=== PATIENT | male | born 1985 | race Caucasian/White ===

== ENCOUNTER 2018-08-05 15:20 | Emergency (ER) | payer MEDICAID ==
[~2018-08-05] VITALS: Ht 198.1 cm; Wt 90.7 kg
[2018-08-05] MEDS ORDERED: ACETAMINOPHEN ES 500 MG TABLET ONE (17:38)
[2018-08-05] MEDS: IV NS 0.9% 1,000 ML BAG IV ONE (17:48)
[2018-08-05] MEDS: ACETAMINOPHEN ES 500 MG TABLET PO ONE (17:49)
--- NOTE | 2018-08-05 17:50 | NUR ---
R SIDE JAW PAIN AND SWELLING X TODAY UPON WAKING UP. PT AAOX4, VSS. DENIES SOB, N/V OR ANY ACUTE DISTRESS NOTED. PT SEEN & EVAL'D BY KETAN KENYON. MEDICATED FOR PAIN & WILL CONT TO MONITOR.
[2018-08-05 17:58] LABS: BASOPHILS # (AUTO) 0.1 /CMM (0.0-0.2); BASOPHILS % (AUTO) 0.5 % (0.0-2.0); EOSINOPHILS % (AUTO) 0.9 % (0.0-6.0); HEMATOCRIT 44 % (39-51); HEMOGLOBIN 14.9 g/dL (13.5-17.5); LYMPHOCYTES # (AUTO) 1.5 /CMM (0.8-4.8); LYMPHOCYTES % (AUTO) 10.7 % (20.0-44.0); MEAN CORPUSCULAR HGB CONC 34 g/dl (31.0-36.0); MEAN CORPUSCULAR VOLUME 92 fL (80-96); MONOCYTES # (AUTO) 0.9 /CMM (0.1-1.30); MONOCYTES % (AUTO) 6.6 % (2.0-12.0); NEUTROPHILS # (AUTO) 11.1 /CMM (1.8-8.9); NEUTROPHILS % (AUTO) 81.3 % (43.0-81.0); PLATELET COUNT (AUTO) 275 /CMM (150-450); RED BLOOD CELL COUNT(AUTO) 4.84 MIL/uL (4.5-6.0); WHITE BLOOD COUNT (AUTO) 13.6 K/uL (4.3-11.0)
[2018-08-05] MEDS: CLINDAMYCIN 600 MG in IV NS 0.9% 50 ML IV SCH (18:04)
[2018-08-05 18:07] LABS: CALCIUM, SERUM 8.8 mg/dL (8.5-10.1); POTASSIUM 3.4 mmol/L (3.5-5.1)
[2018-08-05] MEDS ORDERED: CT SWABBABLE VALVE TRANS SET 1 EA INFUS.SET MC ONE (18:15)
[2018-08-05] MEDS ORDERED: IV NS 0.9% 250 ML IV ONE (18:15)
[2018-08-05] MEDS ORDERED: IOHEXOL-300 100 ML VIAL IV ONE (18:15)
[2018-08-05 19:48] VITALS: BP 139/78
--- NOTE | 2018-08-05 19:49 | NUR ---
Patient discharged to home in stable condition. Written and verbal after care instructions given. Patient verbalizes understanding of instruction. IV removed. Catheter intact and site benign. Pressure and 4x4 applied to site. No bleeding noted. Pt ambulatory with a steady gait
== END 2018-08-05 19:51 | disposition home or self-care (01) ==
LOC: ER 15:43
DX: K13.0 Diseases of lips (principal)
CPT/HCPCS: 36415; 70487; 80048; 85025; 96365; 99284; A4216; A4606; J3490; J7030; J7050; Q9967

== ENCOUNTER 2018-08-30 11:08 | Emergency (ER) | payer MEDICAID ==
[~2018-08-30] VITALS: Ht 198.1 cm; Wt 80.3 kg
[2018-08-30 11:16] VITALS: BP 137/97
[2018-08-30] MEDS ORDERED: IBUPROFEN 600 MG TABLET PO ONE ×2 (11:30→11:36)
== END 2018-08-30 11:45 | disposition home or self-care (01) ==
LOC: ER 11:19
DX: L55.0 Sunburn of first degree (principal); M79.672 Pain in left foot; F12.10 Cannabis abuse, uncomplicated; F17.200 Nicotine dependence, unspecified, uncomplicated; Z59.0 Homelessness; X08.8XXA Exposure to other specified smoke, fire and flames, initial encounter; Y93.89 Activity, other specified; Y92.89 Other specified places as the place of occurrence of the external cause; Y99.8 Other external cause status
CPT/HCPCS: 16000; 99284; A4606

== ENCOUNTER 2018-11-24 14:50 | Emergency (ER) | payer MEDICAID ==
[~2018-11-24] VITALS: Ht 198.1 cm; Wt 87.5 kg
[2018-11-24 15:03] VITALS: BP 107/71
[2018-11-24 16:05] LABS: BASOPHILS % (AUTO) 0.5 % (0.0-2.0); EOSINOPHILS % (AUTO) 2.2 % (0.0-6.0); HEMATOCRIT 34 % (39-51); HEMOGLOBIN 11.7 g/dL (13.5-17.5); LYMPHOCYTES % (AUTO) 28.5 % (20.0-44.0); MEAN CORPUSCULAR HGB CONC 34 g/dl (31.0-36.0); MEAN CORPUSCULAR VOLUME 90 fL (80-96); MONOCYTES # (AUTO) 0.9 /CMM (0.1-1.30); NEUTROPHILS # (AUTO) 3.8 /CMM (1.8-8.9); NEUTROPHILS % (AUTO) 55.8 % (43.0-81.0); PLATELET COUNT (AUTO) 236 /CMM (150-450); RED BLOOD CELL COUNT(AUTO) 3.83 MIL/uL (4.5-6.0); WHITE BLOOD COUNT (AUTO) 6.9 K/uL (4.3-11.0)
[2018-11-24 16:14] LABS: CALCIUM, SERUM 8.1 mg/dL (8.5-10.1); CREATININE 1.1 mg/dL (0.6-1.3); POTASSIUM 4.2 mmol/L (3.5-5.1)
--- NOTE | 2018-11-24 16:38 | NUR ---
Patient discharged to home in stable condition. Written and verbal after care instructions given. Patient verbalizes understanding of instruction.
== END 2018-11-24 16:39 | disposition home or self-care (01) ==
LOC: ER 14:56
DX: J06.9 Acute upper respiratory infection, unspecified (principal); I88.8 Other nonspecific lymphadenitis; F17.200 Nicotine dependence, unspecified, uncomplicated; Z59.0 Homelessness
CPT/HCPCS: 36415; 80048-TC; 85025-TC

== ENCOUNTER 2020-01-05 02:25 | Emergency (ER) | payer OTHER | END 2020-01-05 06:09 | disposition home or self-care (01) | LOC: ER 02:25 | DX: S62.395A Other fracture of fourth metacarpal bone, left hand, initial encounter for closed fracture (principal); S60.021A Contusion of right index finger without damage to nail, initial encounter; F17.200 Nicotine dependence, unspecified, uncomplicated; Z59.0 Homelessness; W19.XXXA Unspecified fall, initial encounter; Y93.89 Activity, other specified; Y92.89 Other specified places as the place of occurrence of the external cause; Y99.8 Other external cause status | CPT/HCPCS: 73130-TC ==